=== PATIENT | male | born 1990 | race Caucasian/White ===

== ENCOUNTER 2020-11-17 16:01 | Emergency (ER) | payer OTHER ==
[~2020-11-17 16:01] MED LIST: IBUPROFEN600 MG PO
[2020-11-17 17:19] LABS: HEMOGLOBIN 16.4 gm/dl (14.0-17.5); RED BLOOD COUNT 5.26 M/UL (4.20-5.50)
[2020-11-17 17:44] LABS: BUN/CREATININE RATIO 9 (0-10)
[2020-11-17] MEDS ORDERED: ZOFRAN ODT 4 MG4 MG PO (18:34)
[2020-11-17] MEDS ORDERED: OMEPRAZOLE40 MG PO (18:40)
== END 2020-11-17 19:02 | disposition home or self-care (01) ==
LOC: ER1 16:01
PROVIDERS: Emergency Medicine
DX: R10.13 Epigastric pain (principal); R11.2 Nausea with vomiting, unspecified; F17.200 Nicotine dependence, unspecified, uncomplicated; Z79.899 Other long term (current) drug therapy
CPT/HCPCS: 80053; 81001; 83690; 85025; 96374; 99284; J2405